=== PATIENT | female | born 1980 | race Caucasian/White ===

== ENCOUNTER 2018-05-31 05:55 | Day surgery (SDC) | payer OTHER ==
[2018-05-31] MEDS ORDERED: Dextrose 5%-Lactated Ringers 1,000 ML IV SCH (06:30)
[2018-05-31] MEDS ORDERED: Midazolam 1 MG/ML 2 ML SDV ONE (06:34)
[2018-05-31] MEDS ORDERED: fentaNYL 100 MCG/2 ML SDV ONE (06:34)
[2018-05-31] MEDS ORDERED: Propofol 200 MG/20 ML SDV ONE (06:34)
[2018-05-31] MEDS ORDERED: Glycopyrrolate 0.2 MG/ML 2 ML SDV IVPUSH ONE (07:10)
[2018-05-31] MEDS ORDERED: Pantoprazole 40 MG Vial IVPUSH ONE (07:36)
[2018-05-31 08:10] VITALS: BP 111/75
--- NOTE | 2018-06-04 08:33 | OR ---
DATE OF PROCEDURE: 05/31/2018 PREOPERATIVE DIAGNOSIS: Epigastric pain. POSTOPERATIVE DIAGNOSES: Epigastric pain associated with diffuse gastritis and scattered antral erosions. OPERATIVE PROCEDURE: Esophagogastroduodenoscopy with biopsies of the antrum and gastric body for histologic evaluation. ANESTHESIA: IV sedation. INDICATION FOR PROCEDURE: This is a 37-year-old presenting with some ongoing epigastric discomfort. She does not report much in the way of heartburn type symptoms, but primarily epigastric discomfort that sometimes is worse when on an empty stomach and also sometimes worse after eating. We will proceed with upper GI endoscopy with biopsies as indicated. Potential risks including bleeding and perforation were discussed, and the patient wishes to proceed. DETAILS OF PROCEDURE: The patient was taken to the operating room, placed in a left lateral decubitus position. IV sedation was administered, after which the upper GI endoscope was passed orally through the length of the esophagus and into the stomach with retroflexion view of the fundus, and thereafter through the pyloric channel and into the junction of the third and fourth portions of the duodenum. Findings included normal esophagus and EG junction area. In the stomach, the patient was noted to have a diffuse redness and edema. This was most pronounced in the mid and distal body of the stomach as well as antrum. Within the antrum, there were a few scattered erosions present as well. No true ulcers were seen. Pyloric channel and visualized portions of the duodenum were unremarkable. At this point, biopsies were obtained from both the antrum and body of stomach, sent for histologic evaluation as in this case appeared potentially be something more than a peptic- type gastritis. CLOtest was not obtained as the tissue biopsies will contain stains for H. pylori. Minimal bleeding from the biopsy sites was seen and the procedure then concluded. The patient was taken to the recovery room in satisfactory condition. The patient was given Protonix 40 mg IV in the recovery room and started on Protonix 40 mg daily and follow up with Dr. Cesar in 2 weeks. If the Protonix is ineffective in treatment, we might try something like Carafate, but certainly proton pump inhibitors or perhaps H2 blockers in the long-term would be an easier regimen to comply with. The patient will be following up with Dr. Cesar in [facility] in two weeks. Osorio Carranza MD /[id number]
== END 2018-05-31 08:25 | disposition home or self-care (01) ==
LOC: JP.SDS 05:55
PROVIDERS: ATTEND Surgery
DX: K29.50 Unspecified chronic gastritis without bleeding (principal); K25.9 Gastric ulcer, unspecified as acute or chronic, without hemorrhage or perforation; F17.200 Nicotine dependence, unspecified, uncomplicated; K21.9 Gastro-esophageal reflux disease without esophagitis; Z88.1 Allergy status to other antibiotic agents
CPT/HCPCS: 43239; 81025; C9113; J2250; J2704; J3010; J7042; J3490